=== PATIENT | female | born 1995 | race American Indian/Alaskan Native ===

== ENCOUNTER 2017-11-16 20:08 | Emergency (ER) | payer OTHER ==
[2017-11-16 21:02] LABS: Hematocrit 33.5 % (30.3-42.9); Hemoglobin 11.5 gm/dl (10.1-14.3); Mean Corpuscular HGB Conc 34 % (30-34); Mean Corpuscular Hemoglobin 30 pg (28-32); Mean Corpuscular Volume 88 fl (79-97); Platelet Count 237 K/mm3 (140-440); Red Blood Count 3.82 M/mm3 (3.65-5.03); Red Cell Distribution Width 13.6 % (13.2-15.2); White Blood Count 6.7 K/mm3 (4.5-11.0)
[2017-11-16 21:20] LABS: Anion Gap 16 mmol/L; BUN/Creatinine Ratio 20; Blood Urea Nitrogen 8 mg/dL (7-17); Calcium 8.9 mg/dL (8.4-10.2); Carbon Dioxide 24 mmol/L (22-30); Chloride 101.1 mmol/L (98-107); Glucose 86 mg/dL (65-100); Potassium 3.5 mmol/L (3.6-5.0); Sodium 138 mmol/L (137-145)
[2017-11-16 22:02] LABS: Bilirubin,Urine NEG (Negative); Blood,Urine NEG (Negative); Ketones,Urine NEG (Negative); Leukocyte Esterase,Urine TR (Negative); Mucus,Urine FEW /HPF; Nitrite,Urine NEG (Negative); Protein,Urine <15 mg/dL mg/dL (Negative); Urobilinogen,Urine < 2.0 mg/dL (<2.0)
[2017-11-17] MEDS ORDERED: NACL 0.9% 1000 ML 1,000 ML IV ONE (02:43)
[2017-11-17] MEDS ORDERED: REGLAN IV ONE (02:43)
--- NOTE | 2017-11-17 02:43 | Emergency Department Report ---
ED General Adult HPI - General Chief complaint: Weakness Stated complaint: N/V; ABD PAIN Time Seen by Provider: 11/17/17 02:30 Source: patient Mode of arrival: Ambulatory Limitations: No Limitations - History of Present Illness Initial comments: This is a 22-year-old female nontoxic, well nourished in appearance, no acute signs of distress presents to the ED with c/o of bilateral breast tenderness, nausea, vomiting 1 month. Patient states she take a test that was positive and is ruling out . Patient denies any abdominal pain, headache, stiff neck, chest pain, shortness breath, pelvic pain, vaginal bleeding, vaginal discharge, dysuria, polyuria, hematuria or back pain. Patient denies any drug allergies or past medical history. MD Complaint: -: month(s) (1) Radiation: non-radiation Severity scale (0 -10): 2 Quality: aching Consistency: constant Improves with: none Worsens with: none Associated Symptoms: denies other symptoms, nausea/vomiting. denies: confusion , chest pain, cough, diaphoresis, fever/chills, headaches, loss of appetite, malaise, rash, seizure, shortness of breath, syncope, weakness Treatments Prior to Arrival: none - Related Data Previous Rx's Medication Instructions Recorded Last Taken Type Doxylamine Succinate/Vit B6 1 each PO DAILY #30 tablet. 11/17/17 Unknown Rx [Rosalind Montes De Oca 10-10 mg Tablet] Allergies Allergy/AdvReac Type Severity Reaction Status Date / Time No Known Allergies Allergy Unverified 11/16/17 20:38 ED Review of Systems ROS: Stated complaint: N/V; ABD PAIN Other details as noted in HPI Constitutional: denies: chills, fever Eyes: denies: eye pain, eye discharge, vision change ENT: denies: ear pain, throat pain Respiratory: denies: cough, shortness of breath, wheezing Cardiovascular: denies: chest pain, palpitations Endocrine: no symptoms reported Gastrointestinal: denies: abdominal pain, nausea, diarrhea Genitourinary: denies: urgency, dysuria, discharge Musculoskeletal: denies: back pain, joint swelling, arthralgia Skin: denies: rash, lesions Neurological: denies: headache, weakness, paresthesias Psychiatric: denies: anxiety, depression Hematological/Lymphatic: denies: easy bleeding, easy bruising ED Past Medical Hx - Past Medical History Previous Medical History?: No - Surgical History Past Surgical History?: No - Social History Smoking Status: Never Smoker Substance Use Type: None - Medications Home Medications: Home Medications Medication Instructions Recorded Confirmed Last Taken Type Doxylamine Succinate/Vit B6 1 each PO DAILY #30 tablet. 11/17/17 Unknown Rx [Diclegis Dr 10-10 mg Tablet] ED Physical Exam - General Limitations: No Limitations General appearance: alert, in no apparent distress - Head Head exam: Present: atraumatic, normocephalic, normal inspection - Eye Eye exam: Present: normal appearance, PERRL, EOMI. Absent: scleral icterus, conjunctival injection, nystagmus, periorbital swelling, periorbital tenderness Pupils: Present: normal accommodation - ENT ENT exam: Present: normal exam, normal orophraynx, mucous membranes moist, TM's normal bilaterally, normal external ear exam - Neck Neck exam: Present: normal inspection, full ROM. Absent: tenderness, meningismus, lymphadenopathy, thyromegaly - Respiratory Respiratory exam: Present: normal lung sounds bilaterally. Absent: respiratory distress, wheezes, rales, rhonchi, stridor, chest wall tenderness, accessory muscle use, decreased breath sounds, prolonged expiratory - Cardiovascular Cardiovascular Exam: Present: regular rate, normal rhythm, normal heart sounds. Absent: bradycardia, tachycardia, irregular rhythm, systolic murmur, diastolic murmur, rubs, gallop - GI/Abdominal GI/Abdominal exam: Present: soft, normal bowel sounds. Absent: distended, tenderness, guarding, rebound, rigid, diminished bowel sounds - Expanded GI/Abdominal Exam Expanded GI/Abdominal exam: Absent: psoas sign, obturator sign, heel tap sign, He's sign, Rovsing's sign, tenderness at Mcburney's Point, ascites - Rectal Rectal exam: Present: deferred - Extremities Exam Extremities exam: Present: normal inspection, full ROM, normal capillary refill. Absent: tenderness, pedal edema, joint swelling, calf tenderness - Back Exam Back exam: Present: normal inspection, full ROM. Absent: tenderness, CVA tenderness (R), CVA tenderness (L), muscle spasm, paraspinal tenderness, vertebral tenderness, rash noted - Neurological Exam Neurological exam: Present: alert, oriented X3, CN II-XII intact, normal gait, reflexes normal - Psychiatric Psychiatric exam: Present: normal affect, normal mood - Skin Skin exam: Present: warm, dry, intact, normal color. Absent: rash ED Course Vital Signs 11/16/17 11/17/17 20:38 02:28 Temperature 99.5 F 98.5 F Pulse Rate 73 71 Respiratory 18 14 Rate Blood Pressure 110/50 106/53 O2 Sat by Pulse 100 100 Oximetry - Reevaluation(s) Reevaluation #1: 11/17/17 02:41 Patient is speaking in full sentences with no signs of distress noted. ED Medical Decision Making - Lab Data Result diagrams: 11/16/17 20:52 11/16/17 20:52 - Medical Decision Making This is a 22-year-old female that presents with positive , nausea, vomiting, and bilateral breast tenderness. She is stable and was examined by me. CBC, BMP obtained within normal limits. UA obtained and positive test. Quantitative serum obtained. Patient received 1 L of normal saline with Reglan with patient that his symptoms have subsided and improved. By mouth challenge obtained and patient tolerated well with no signs of any nausea or vomiting. Patient is discharged with Diclegis. Patient was instructed Follow-up with a primary care doctor/[facility] in 3-5 days or if symptoms worsen and continue return to emergency room as soon as possible. At time time of discharge, the patient does not seem toxic or ill in appearance. No acute signs of distress noted. Patient agrees to discharge treatment plan of care. No further questions noted by the patient. Critical care attestation.: If time is entered above; I have spent that time in minutes in the direct care of this critically ill patient, excluding procedure time. ED Disposition Clinical Impression: Breast tenderness Qualifiers: Weeks of gestation: unspecified Qualified Code(s): Z34.90 - Encounter for supervision of normal , unspecified, unspecified trimester Nausea & vomiting Qualifiers: Vomiting type: unspecified Vomiting Intractability: unspecified Qualified Code( s): R11.2 - Nausea with vomiting, unspecified Disposition: DC-01 TO HOME OR SELFCARE Is pt being admited?: No Does the pt Need Aspirin: No Condition: Stable Instructions: Acute Nausea and Vomiting (ED), (ED), Doxylamine/ Pyridoxine (By mouth) Additional Instructions: Follow-up with a primary care doctor/[facility] in 3-5 days or if symptoms worsen and continue return to emergency room as soon as possible. Take Diclegis as prescribed: 10 mg/pyridoxine 10 mg (Diclegis): Initial: Two tablets at bedtime on day 1 and 2; if symptoms persist, take 1 tablet in morning and 2 tablets at bedtime on day 3; if symptoms persist, may increase to 1 tablet in morning, 1 tablet mid-afternoon, and 2 tablets at bedtime on day 4 ( maximum: doxylamine 40 mg/pyridoxine 40 mg (4 tablets) per day). Prescriptions: Doxylamine Succinate/Vit B6 [Diclegis Dr 10-10 mg Tablet] 1 each PO DAILY #30 tablet. Referrals: PRIMARY CARE, [Primary Care Provider] - 3-5 Days MATHEW CLIFFORD MD [Staff Physician] - 3-5 Days TAI LOZA MD [Staff Physician] - 3-5 Days [facility] [Outside] - 3-5 Days [facility] [Outside] - 3-5 Days [facility] [Provider Group] - 3-5 Days Forms: Work/School Release Form(ED)
[2017-11-17 07:00] VITALS: BP 112/58
== END 2017-11-17 06:35 | disposition home or self-care (01) ==
LOC: ED 20:08
DX: O21.9 Vomiting of pregnancy, unspecified (principal); O26.891 Other specified pregnancy related conditions, first trimester; N64.89 Other specified disorders of breast; Z3A.09 9 weeks gestation of pregnancy
CPT/HCPCS: 36415; 80048; 81001; 81025; 84702; 85027; 96361; 96374; 99283; J2765; J7030

== ENCOUNTER 2019-03-15 21:35 | Emergency (ER) | payer SELFPAY ==
[2019-03-15 22:20] VITALS: BP 126/68
== END 2019-03-16 01:35 | disposition left against medical advice (07) ==
LOC: ED 21:35
DX: N64.4 Mastodynia (principal); Z53.21 Procedure and treatment not carried out due to patient leaving prior to being seen by health care provider